=== PATIENT | male | born 1955 | race Caucasian/White ===

== ENCOUNTER 2019-02-23 14:05 | Emergency (ER) | payer MEDICARE ==
[~2019-02-23] VITALS: Ht 185.4 cm; Wt 77.1 kg
[2019-02-23] MEDS ORDERED: XANAX 0.5 MG0.5 MG PO (14:19)
[2019-02-23] MEDS ORDERED: ULTRAM 50MG TAB50 MG PO (14:19)
[2019-02-23] MEDS ORDERED: SYMBICORT160 MCG/4. INH (14:19)
[2019-02-23] MEDS ORDERED: PREDNISONE 20 M20 M1 PO (14:19)
[2019-02-23] MEDS ORDERED: NEURONTIN 300300 M1 PO (14:19)
[2019-02-23] MEDS ORDERED: VENTOLIN HFA 1818 GM INH (14:19)
[2019-02-23 14:28] VITALS: BP 123/63
== END 2019-02-23 14:29 | disposition home or self-care (01) ==
LOC: M.ERS 14:05
DX: R06.02 Shortness of breath (principal); Z76.0 Encounter for issue of repeat prescription; E86.0 Dehydration; Z88.8 Allergy status to other drugs, medicaments and biological substances